=== PATIENT | female | born 1990 | race Caucasian/White ===

== ENCOUNTER 2019-02-07 21:23 | Inpatient (IN) | payer OTHER ==
[~2019-02-07] VITALS: Ht 167.6 cm; Wt 54.5 kg
[2019-02-07 23:15] VITALS: BP 99/48
[2019-02-08] VITALS (17 sets, daily range): BP systolic 82–151; BP diastolic 37–82
[2019-02-08] MEDS ORDERED: INFLUENZA VAX SCREEN BY RX. MC PRN (02:00)
[2019-02-08] MEDS ORDERED: ONDANSETRON PF 4 MG/2 ML VIAL. IVP PRN (02:00)
[2019-02-08] MEDS: IV NORMAL SALINE 1000ML BAG 1,000 ML IV SCH ×2 (03:15→13:08)
[2019-02-08] MEDS: ACETAMINOPHEN 325 MG TABLET. PO PRN ×2 (03:42→13:07)
[2019-02-08 04:28] LABS: BASO % 0 % (0-3); EOS % 0 % (0-3); HEMATOCRIT 33.7 % (36.0-47.0); HEMOGLOBIN 11.6 g/dL (12.0-15.5); LYMPH % 6 % (24-48); MEAN CORPUSCULAR HEMOGLOBIN 30 pg (25-35); MEAN CORPUSCULAR HGB CONC 34 g/dL (31-37); MEAN CORPUSCULAR VOLUME 87 fL (79-100); MONO # 1.1 x10^3/uL (0.0-1.1); MONO % 8 % (0-9); NEUT # 13.1 x10^3/uL (1.8-7.7); NEUT % 86 % (31-73); PLATELET COUNT 228 x10^3/uL (140-400); RED BLOOD COUNT 3.89 x10^6/uL (3.50-5.40); RED CELL DISTRIBUTION WIDTH 13.7 % (11.5-14.5); WHITE BLOOD COUNT 15.3 x10^3/uL (4.0-11.0)
[2019-02-08 04:56] LABS: ALBUMIN 3.2 g/dL (3.4-5.0); ALBUMIN/GLOBULIN RATIO 1.1 (1.0-1.7); CALCIUM 8.1 mg/dL (8.5-10.1); CREATININE 0.9 mg/dL (0.6-1.0); GFR 75.7; MAGNESIUM 1.5 mg/dL (1.8-2.4); POTASSIUM 3.2 mmol/L (3.5-5.1); TOTAL PROTEIN 6.1 g/dL (6.4-8.2)
[2019-02-08 07:48] LABS: % BANDS 11 % (0-9); % LYMPHS 2 % (24-48); % MONOS 2 % (0-10); % SEGS 85 % (35-66); PLT ESTIMATE ADEQUATE (ADEQUATE)
--- NOTE | 2019-02-08 08:00 | NUR ---
PT TRIGGERED POSITIVE SEPSIS- HR 101, TEMP 99.0, WBC 15.3, BP 85/46. PAGED ICU CHARGE NURSE. ORDERED BLOOD CULTURES, CBC, LACTIC ACID, AND 500 ML NS BOLUS. NOTIFIED DR. MCGREGOR, ORDERS RECEIVED FOR ZOSYN 3.75 Q6HR, AND AN ID CONSULT. WILL CONTINUE TO MONITOR. Addendum: 02/08/19 at 0953 by FROY EVANS RN PT BP 90/51, HR 100'S. PT RESTING IN BED WITH EYES CLOSED. FAMILY AT THE BEDSIDE. WILL CONTINUE TO MONITOR.
[2019-02-08] MEDS: oxyCODONE/APAP 5/325 1 TAB TABLET PO PRN (08:30)
[2019-02-08] MEDS ORDERED: FLU VAX QS 2019-20 (36MOS+)/PF 0.5 ML SYRINGE. VAX IM ONE (09:00)
[2019-02-08] MEDS ORDERED: IV NORMAL SALINE 500ML BAG 500 ML IV ONE (09:00)
[2019-02-08 09:40] LABS: BASO % 0 % (0-3); EOS % 0 % (0-3); HEMATOCRIT 32.9 % (36.0-47.0); LYMPH # 1.1 x10^3/uL (1.0-4.8); LYMPH % 8 % (24-48); MEAN CORPUSCULAR HEMOGLOBIN 29 pg (25-35); MEAN CORPUSCULAR HGB CONC 33 g/dL (31-37); MEAN CORPUSCULAR VOLUME 88 fL (79-100); MONO # 0.8 x10^3/uL (0.0-1.1); MONO % 6 % (0-9); NEUT # 11.5 x10^3/uL (1.8-7.7); NEUT % 86 % (31-73); PLATELET COUNT 198 x10^3/uL (140-400); RED BLOOD COUNT 3.76 x10^6/uL (3.50-5.40); RED CELL DISTRIBUTION WIDTH 13.5 % (11.5-14.5); WHITE BLOOD COUNT 13.4 x10^3/uL (4.0-11.0)
--- NOTE | 2019-02-08 10:03 | NUR ---
PT CONFIRMED ALLERGY TO CEFPROZIL. PT STATED SHE HAD A "RASH" WHEN SHE WAS A "KID" AFTER RECEIVING THE ANTIBIOTIC. ZOSYN ORDERED PER SEPSIS PROTOCOL, WILL CONTINUE TO MONITOR FOR AN ALLERGIC REACTION.
[2019-02-08] MEDS: PIPERACILLIN/TAZOBACTAM 3.375 GM in IV NORMAL SALINE 50ML 50 ML IV SCH ×2 (10:44→17:46)
--- NOTE | 2019-02-08 10:55 | PDOC1 ---
History and Physical Date of Admission Date of Admission DATE: 02/08/19 TIME: 10:55 Identification/Chief Complaint Chief Complaint transfer from [facility] er with sepsis, now hypotensive, temp 102.9 last PM CXR [place] AND CT ABD NOT REVEALING, WILL GO TO ICU NOW FOR HYPOTENSION, NOT RESPONSIVE TO IV FLUID SUPPORT Past Medical History GI: No pertinent hx Heme/Onc: No pertinent hx Hepatobiliary: No pertinent hx Psych: No pertinent hx Renal/: No pertinent hx Endocrine: No pertinent hx Past Surgical History Past Surgical History: Appendectomy Family History Family History: High Cholestrol Social History Smoke: No ALCOHOL: none Drugs: None Current Medications Current Medications Current Medications Influenza Virus Vaccine Quadrival (Afluria Quad 2019-20 (3yr Up) Syringe) 0.5 ml ONCE ONCE VAX IM ; Start 02/08/19 at 09:00; Stop 02/08/19 at 09:01; Status DC Info (FLU VACCINE SCREEN per RX) 1 each PRN 1X PRN MC SEE COMMENTS; Start 02/08/19 at 02:00; Status Cancel Sodium Chloride 1,000 ml @ 75 mls/hr [id number] IV Last administered on 02/08/19at 03:15; Start 02/08/19 at 02:00 Ondansetron HCl (Zofran) 4 mg PRN Q6HRS PRN IVP NAUSEA/VOMITING; Start 02/08/19 at 02:00 Oxycodone/ Acetaminophen (Percocet 5/325) 1 tab PRN Q4HRS PRN PO PAIN Last administered on 02/08/19at 08:30; Start 02/08/19 at 02:00 Acetaminophen (Tylenol) 650 mg PRN Q6HRS PRN PO MILD PAIN / TEMP Last administered on 02/08/19at 03:42; Start 02/08/19 at 02:00 Levofloxacin (Levaquin) 500 mg DAILY06 PO Last administered on 02/08/19at 05:33; Start 02/08/19 at 06:00 Sodium Chloride 500 ml @ 500 mls/hr 1X ONCE IV Last administered on 02/08/19at 09:00; Start 02/08/19 at 09:00; Stop 02/08/19 at 09:59; Status DC Piperacillin Sod/ Tazobactam Sod 3.375 gm/Sodium Chloride 50 ml @ 100 mls/hr Q6HRS IV Last administered on 02/08/19at 10:44; Start 02/08/19 at 10:00 Allergies Allergies: Coded Allergies: cefprozil (Verified Allergy, Intermediate, Rash, 02/08/19) ROS General: YES: Chills, Fatigue PSYCHOLOGICAL ROS: No: Anxiety, Behavioral Disorder, Concentration difficultie, Decreased libido, Depression, Disorientation, Hallucinations, Hostility, Irritablity, Memory difficulties, Mood Swings, Obsessive thoughts, Physical abuse, Sexual abuse, Sleep disturbances, Suicidal ideation, Other Eyes: No Blurry vision, No Decreased vision, No Double vision, No Dry eyes, No Excessive tearing, No Eye Pain, No Itchy Eyes, No Loss of vision, No Photophobia, No Scotomata, No Uses contacts, No Uses glasses, No Other Hematological and Lymphatic: No: Bleeding Problems, Blood Clots, Blood Transfusions, Brusing, Night Sweats, Pallor, Swollen Lymph Nodes, Other ENDOCRINE: YES: Breast Changes Breast: Nipple changes Respiratory: No: Cough, Hemoptysis, Orthopnea, Pleuritic Pain, Shortness of breath, SOB with excertion, Sputum Changes, Stridor, Tachypnea, Wheezing, Other Cardiovascular: No Chest Pain, No Palpitations, No Orthopnea, No Paroxysmal Noc. Dyspnea, No Edema, No Lt Headedness, No Other Gastrointestinal: Yes Nausea Genitourinary: No Dysuria, No Frequency, No Incontinence, No Hematuria, No Retention, No Discharge, No Urgency, No Pain, No Flank Pain, No Other, No , No , No , No , No , No , No Musculoskeletal: No Gait Disturbance, No Joint Pain, No Joint Stiffness, No Angélica int Swelling, No Muscle Pain, No Muscular Weakness, No Pain In:, No Swelling In:, No Other Neurological: No Behavorial Changes, No Bowel/Bladder ControlChng, No Confusion, No Dizziness, No Gait Disturbance, No Headaches, No Impaired C oord/balance, No Memory Loss, No Numbness/Tingling, No Seizures, No Speech Problems, No Tremors, No Visual Changes, No Weakness, No Other Skin: No Dry Skin, No Eczema, No Hair Changes, No Lumps, No Mole Changes, No Mottling, No Nail Changes, No Pruritus, No Rash, No Skin Lesion Changes, No Other, No Acne Physical Exam General: Alert, Oriented X3, Cooperative, No acute distress HEENT: PERRLA Lungs: Clear to auscultation, Normal air movement Heart: RRR, no thrills, no rubs Breasts: Not examined Abdomen: Normal bowel sounds, Soft Rectal Exam: not examined PELVIC: Examination not indicated Extremities: No cyanosis Neuro: Normal speech, Cranial nerves 3-12 NL Psych/Mental Status: Mental status NL, Mood NL Vitals Vitals Vital Signs Date Time Temp Pulse Resp B/P (MAP) Pulse Ox O2 Delivery O2 Flow Rate FiO2 02/08/19 08:51 102 90/51 (64) 99 Room Air 02/08/19 07:00 99.0 18 99.0 Labs Labs Laboratory Tests Test 02/08/19 03:20 02/08/19 09:25 White Blood Count 15.3 x10^3/uL (4.0-11.0) 13.4 x10^3/uL (4.0-11.0) Red Blood Count 3.89 x10^6/uL (3.50-5.40) 3.76 x10^6/uL (3.50-5.40) Hemoglobin 11.6 g/dL (12.0-15.5) 11.0 g/dL (12.0-15.5) Hematocrit 33.7 % (36.0-47.0) 32.9 % (36.0-47.0) Mean Corpuscular Volume 87 fL (79-100) 88 fL (79-100) Mean Corpuscular Hemoglobin 30 pg (25-35) 29 pg (25-35) Mean Corpuscular Hemoglobin Concent 34 g/dL (31-37) 33 g/dL (31-37) Red Cell Distribution Width 13.7 % (11.5-14.5) 13.5 % (11.5-14.5) Platelet Count 228 x10^3/uL (140-400) 198 x10^3/uL (140-400) Neutrophils (%) (Auto) 86 % (31-73) 86 % (31-73) Lymphocytes (%) (Auto) 6 % (24-48) 8 % (24-48) Monocytes (%) (Auto) 8 % (0-9) 6 % (0-9) Eosinophils (%) (Auto) 0 % (0-3) 0 % (0-3) Basophils (%) (Auto) 0 % (0-3) 0 % (0-3) Neutrophils # (Auto) 13.1 x10^3/uL (1.8-7.7) 11.5 x10^3/uL (1.8-7.7) Lymphocytes # (Auto) 1.0 x10^3/uL (1.0-4.8) 1.1 x10^3/uL (1.0-4.8) Monocytes # (Auto) 1.1 x10^3/uL (0.0-1.1) 0.8 x10^3/uL (0.0-1.1) Eosinophils # (Auto) 0.0 x10^3/uL (0.0-0.7) 0.0 x10^3/uL (0.0-0.7) Basophils # (Auto) 0.0 x10^3/uL (0.0-0.2) 0.0 x10^3/uL (0.0-0.2) Segmented Neutrophils % 85 % (35-66) Band Neutrophils % 11 % (0-9) Lymphocytes % 2 % (24-48) Monocytes % 2 % (0-10) Platelet Estimate Adequate (ADEQUATE) Sodium Level 139 mmol/L (136-145) Potassium Level 3.2 mmol/L (3.5-5.1) Chloride Level 104 mmol/L (98-107) Carbon Dioxide Level 22 mmol/L (21-32) Anion Gap 13 (6-14) Blood Urea Nitrogen 10 mg/dL (7-20) Creatinine 0.9 mg/dL (0.6-1.0) Estimated GFR (Cockcroft-Gault) 75.7 BUN/Creatinine Ratio 11 (6-20) Glucose Level 114 mg/dL (70-99) Calcium Level 8.1 mg/dL (8.5-10.1) Magnesium Level 1.5 mg/dL (1.8-2.4) Total Bilirubin 1.0 mg/dL (0.2-1.0) Aspartate Amino Transf (AST/SGOT) 17 U/L (15-37) Alanine Aminotransferase (ALT/SGPT) 19 U/L (14-59) Alkaline Phosphatase 47 U/L (46-116) Total Protein 6.1 g/dL (6.4-8.2) Albumin 3.2 g/dL (3.4-5.0) Albumin/Globulin Ratio 1.1 (1.0-1.7) Lactic Acid Level 0.7 mmol/L (0.4-2.0) Laboratory Tests Test 02/08/19 03:20 02/08/19 09:25 White Blood Count 15.3 x10^3/uL (4.0-11.0) 13.4 x10^3/uL (4.0-11.0) Red Blood Count 3.89 x10^6/uL (3.50-5.40) 3.76 x10^6/uL (3.50-5.40) Hemoglobin 11.6 g/dL (12.0-15.5) 11.0 g/dL (12.0-15.5) Hematocrit 33.7 % (36.0-47.0) 32.9 % (36.0-47.0) Mean Corpuscular Volume 87 fL (79-100) 88 fL (79-100) Mean Corpuscular Hemoglobin 30 pg (25-35) 29 pg (25-35) Mean Corpuscular Hemoglobin Concent 34 g/dL (31-37) 33 g/dL (31-37) Red Cell Distribution Width 13.7 % (11.5-14.5) 13.5 % (11.5-14.5) Platelet Count 228 x10^3/uL (140-400) 198 x10^3/uL (140-400) Neutrophils (%) (Auto) 86 % (31-73) 86 % (31-73) Lymphocytes (%) (Auto) 6 % (24-48) 8 % (24-48) Monocytes (%) (Auto) 8 % (0-9) 6 % (0-9) Eosinophils (%) (Auto) 0 % (0-3) 0 % (0-3) Basophils (%) (Auto) 0 % (0-3) 0 % (0-3) Neutrophils # (Auto) 13.1 x10^3/uL (1.8-7.7) 11.5 x10^3/uL (1.8-7.7) Lymphocytes # (Auto) 1.0 x10^3/uL (1.0-4.8) 1.1 x10^3/uL (1.0-4.8) Monocytes # (Auto) 1.1 x10^3/uL (0.0-1.1) 0.8 x10^3/uL (0.0-1.1) Eosinophils # (Auto) 0.0 x10^3/uL (0.0-0.7) 0.0 x10^3/uL (0.0-0.7) Basophils # (Auto) 0.0 x10^3/uL (0.0-0.2) 0.0 x10^3/uL (0.0-0.2) Segmented Neutrophils % 85 % (35-66) Band Neutrophils % 11 % (0-9) Lymphocytes % 2 % (24-48) Monocytes % 2 % (0-10) Platelet Estimate Adequate (ADEQUATE) Sodium Level 139 mmol/L (136-145) Potassium Level 3.2 mmol/L (3.5-5.1) Chloride Level 104 mmol/L (98-107) Carbon Dioxide Level 22 mmol/L (21-32) Anion Gap 13 (6-14) Blood Urea Nitrogen 10 mg/dL (7-20) Creatinine 0.9 mg/dL (0.6-1.0) Estimated GFR (Cockcroft-Gault) 75.7 BUN/Creatinine Ratio 11 (6-20) Glucose Level 114 mg/dL (70-99) Calcium Level 8.1 mg/dL (8.5-10.1) Magnesium Level 1.5 mg/dL (1.8-2.4) Total Bilirubin 1.0 mg/dL (0.2-1.0) Aspartate Amino Transf (AST/SGOT) 17 U/L (15-37) Alanine Aminotransferase (ALT/SGPT) 19 U/L (14-59) Alkaline Phosphatase 47 U/L (46-116) Total Protein 6.1 g/dL (6.4-8.2) Albumin 3.2 g/dL (3.4-5.0) Albumin/Globulin Ratio 1.1 (1.0-1.7) Lactic Acid Level 0.7 mmol/L (0.4-2.0) VTE Prophylaxis Ordered VTE Prophylaxis Devices: Yes VTE Pharmacological Prophylaxi: Yes Assessment/Plan Assessment/Plan IMPRESSION 1. FEVER UNCLEAR ORIGIN 2. SEPSIS 3. BITE TO LEFT BREAST by , POA 4. LEUKOCYTOSIS PLAN ADMIT TO ICU SEPSIS PROTOCOL BLOOD CULT IV ZOSYN 3.75GM Q 6 HRS ID CONSULT DVT PROPHYLAXIS IV FLUID BOLUS 2 LITERS NOW LEVAQUIN 500MG IV Q 24 HRS PROCALCITONIN 33 MIN CC TIME REBECCA MCGREGOR MD Feb 08, 2019 10:55
--- NOTE | 2019-02-08 11:12 | NUR ---
PT BP 82/46, HR 80'S, TEMP 98.1 ORAL. PT C/O FEELING "LIGHTHEADED." DR. MCGREGOR NOTIFIED. ORDERS RECEIVED FOR A 1L NS BOLUS TO RUN OVER 1 HR AND TO RECHECK BP. WILL CONTINUE TO MONITOR. Addendum: 02/08/19 at 1414 by FROY EVANS RN Pt BP 86/48, HR IN THE 80'S AFTER 1L NS BOLUS. NOTIFIED DR. MCGREGOR. ORDERS RECEIVED TO TRANSFER PATIENT TO ICU AND GIVE ANOTHER 1L NS BOLUS. WILL CONTINUE TO MONITOR.
[2019-02-08] MEDS ORDERED: IV NORMAL SALINE 1000ML BAG 1,000 ML IV ONE ×2 (11:45→14:15)
[2019-02-08] MEDS ORDERED: IV NORMAL SALINE 1000ML BAG 1,000 ML IV SCH (14:12)
[2019-02-08] MEDS ORDERED: NOREPINEPHRIN 8MG/250ML PREMIX 250 ML IV PRN (14:15)
[2019-02-08] MEDS ORDERED: IV NORMAL SALINE 500ML BAG 500 ML IV PRN (14:15)
[2019-02-08] MEDS ORDERED: MAGNESIUM SULFATE 2GM 50 ML IV PRN (14:30)
[2019-02-08] MEDS ORDERED: POTASSIUM CHLORIDE 20 MEQ TABLET.ER. PO ONE (14:30)
[2019-02-08 14:46] LABS: D-DIMER 0.31 ug/mlFEU (0.00-0.50)
--- NOTE | 2019-02-08 14:48 | NUR ---
PT TRANSFERRED TO ICU, ROOM 114. REPORT CALLED TO JORDIN WYLIE. PT TRANSPORTED VIA WHEELCHAIR WITH FAMILY AT THE BEDSIDE DURING TRANSFER.
--- NOTE | 2019-02-08 14:56 | NUR ---
Patient to room 114 via wheelchair accompanied by 6th floor staff. Informed patient of ICU room that she is in, visitor policy and plan of care. CHG bath explained to patient and given. CHG nasal swab explained and given to patient. Privacy code given to patient's mother and instructed on use of code to check on patient. Denies any questions or concerns at this time.
--- NOTE | 2019-02-08 15:00 | NUR ---
Patient c/o continued pain rated 6 to left breast. Breast above nipple reddened and tender to touch. Ice pack applied to breast.
[2019-02-08] MEDS: LACTOBACILLUS RHAMNOSUS GG 1 CAPSULE. PO SCH (21:09)
[2019-02-09] VITALS (15 sets, daily range): BP systolic 87–108; BP diastolic 45–67
[2019-02-09] MEDS: PIPERACILLIN/TAZOBACTAM 3.375 GM in IV NORMAL SALINE 50ML 50 ML IV SCH ×5 (00:02→23:58)
[2019-02-09] MEDS: oxyCODONE/APAP 5/325 1 TAB TABLET PO PRN ×2 (00:02→14:17)
[2019-02-09 05:45] LABS: BASO % 0 % (0-3); EOS # 0.3 x10^3/uL (0.0-0.7); EOS % 3 % (0-3); HEMATOCRIT 31.4 % (36.0-47.0); HEMOGLOBIN 10.7 g/dL (12.0-15.5); LYMPH # 1.6 x10^3/uL (1.0-4.8); LYMPH % 16 % (24-48); MEAN CORPUSCULAR HEMOGLOBIN 30 pg (25-35); MEAN CORPUSCULAR HGB CONC 34 g/dL (31-37); MEAN CORPUSCULAR VOLUME 87 fL (79-100); MONO # 0.6 x10^3/uL (0.0-1.1); MONO % 6 % (0-9); NEUT % 76 % (31-73); PLATELET COUNT 192 x10^3/uL (140-400); RED BLOOD COUNT 3.59 x10^6/uL (3.50-5.40); WHITE BLOOD COUNT 10.6 x10^3/uL (4.0-11.0)
[2019-02-09] MEDS: IV NORMAL SALINE 1000ML BAG 1,000 ML IV SCH ×3 (05:55→21:42)
[2019-02-09 06:05] LABS: CALCIUM 8.2 mg/dL (8.5-10.1); CREATININE 0.8 mg/dL (0.6-1.0); GFR 86.7; POTASSIUM 3.8 mmol/L (3.5-5.1); TOTAL BILIRUBIN 0.4 mg/dL (0.2-1.0); TOTAL PROTEIN 6.1 g/dL (6.4-8.2)
--- NOTE | 2019-02-09 07:23 | NUR ---
IV fluids NS ordered for 1412 on 02/08/19 documented as not given in ICU; IV bolus given on nursing unit before transfer
--- NOTE | 2019-02-09 08:55 | PDOC ---
Infectious Disease Note Vital Sign Vital Signs Vital Signs Date Time Temp Pulse Resp B/P (MAP) Pulse Ox O2 Delivery O2 Flow Rate FiO2 02/09/19 08:00 Room Air 02/09/19 07:00 98.1 93 18 95/53 (67) 97 98.1 Labs Lab Laboratory Tests Test 02/08/19 09:25 02/09/19 05:00 White Blood Count 13.4 x10^3/uL (4.0-11.0) 10.6 x10^3/uL (4.0-11.0) Red Blood Count 3.76 x10^6/uL (3.50-5.40) 3.59 x10^6/uL (3.50-5.40) Hemoglobin 11.0 g/dL (12.0-15.5) 10.7 g/dL (12.0-15.5) Hematocrit 32.9 % (36.0-47.0) 31.4 % (36.0-47.0) Mean Corpuscular Volume 88 fL (79-100) 87 fL (79-100) Mean Corpuscular Hemoglobin 29 pg (25-35) 30 pg (25-35) Mean Corpuscular Hemoglobin Concent 33 g/dL (31-37) 34 g/dL (31-37) Red Cell Distribution Width 13.5 % (11.5-14.5) 14.0 % (11.5-14.5) Platelet Count 198 x10^3/uL (140-400) 192 x10^3/uL (140-400) Neutrophils (%) (Auto) 86 % (31-73) 76 % (31-73) Lymphocytes (%) (Auto) 8 % (24-48) 16 % (24-48) Monocytes (%) (Auto) 6 % (0-9) 6 % (0-9) Eosinophils (%) (Auto) 0 % (0-3) 3 % (0-3) Basophils (%) (Auto) 0 % (0-3) 0 % (0-3) Neutrophils # (Auto) 11.5 x10^3/uL (1.8-7.7) 8.0 x10^3/uL (1.8-7.7) Lymphocytes # (Auto) 1.1 x10^3/uL (1.0-4.8) 1.6 x10^3/uL (1.0-4.8) Monocytes # (Auto) 0.8 x10^3/uL (0.0-1.1) 0.6 x10^3/uL (0.0-1.1) Eosinophils # (Auto) 0.0 x10^3/uL (0.0-0.7) 0.3 x10^3/uL (0.0-0.7) Basophils # (Auto) 0.0 x10^3/uL (0.0-0.2) 0.0 x10^3/uL (0.0-0.2) Fibrinogen 425 mg/dL (200-440) D-Dimer (Kassie) 0.31 ug/mlFEU (0.00-0.50) Lactic Acid Level 0.7 mmol/L (0.4-2.0) Procalcitonin 5.75 ng/mL (0.00-0.10) Sodium Level 144 mmol/L (136-145) Potassium Level 3.8 mmol/L (3.5-5.1) Chloride Level 110 mmol/L (98-107) Carbon Dioxide Level 25 mmol/L (21-32) Anion Gap 9 (6-14) Blood Urea Nitrogen 7 mg/dL (7-20) Creatinine 0.8 mg/dL (0.6-1.0) Estimated GFR (Cockcroft-Gault) 86.7 BUN/Creatinine Ratio 9 (6-20) Glucose Level 96 mg/dL (70-99) Calcium Level 8.2 mg/dL (8.5-10.1) Total Bilirubin 0.4 mg/dL (0.2-1.0) Aspartate Amino Transf (AST/SGOT) 26 U/L (15-37) Alanine Aminotransferase (ALT/SGPT) 35 U/L (14-59) Alkaline Phosphatase 46 U/L (46-116) Total Protein 6.1 g/dL (6.4-8.2) Albumin 3.0 g/dL (3.4-5.0) Albumin/Globulin Ratio 1.0 (1.0-1.7) Objective Assessment Sepsis with hypotension responsive to fluid resuscitation Mastitis left breast. (bitten by 1 yr) Leukocytosis - improved Atypical chest pain - LUNGs CTA h/o herpangina 2 months ago; recent travel to [place]. Plan Plan of Care Clinically improving Zosyn and levaquin May continue to pump Consider nurse f/u cultures D/w mother at bedside D/w nursing Thank you [place] ill with URI symptoms prior to bite. Rapid acceleration in pain and inflammation 02/07. Now responding to treatment. Possible strep with rapid onset but given bite could be polymicrobial Will d/c Levofloxacin and cont Zosyn and if cont to improve with de-escalate to Augmentin D/w parents and nursing Attending Co-Sign Attending Co-Sign The patient was seen and interviewed as well as examined at the bedside. The chart was reviewed. The case was discussed. Agree with the plan of care. ZANE VALENTIN APRN Feb 09, 2019 08:55 NICHOLAS ELLIS MD Feb 09, 2019 13:32
[2019-02-09] MEDS: LACTOBACILLUS RHAMNOSUS GG 1 CAPSULE. PO SCH ×2 (08:57→21:05)
--- NOTE | 2019-02-09 09:25 | PDOC ---
PROGRESS NOTES Chief Complaint Chief Complaint sepsis acute mastitis w/ cellulitis, bite to left breast still History of Present Illness History of Present Illness cough, some some with deep breaths, left breast redness is much improved cont current ID following Vitals Vitals Vital Signs Date Time Temp Pulse Resp B/P (MAP) Pulse Ox O2 Delivery O2 Flow Rate FiO2 02/09/19 09:05 77 18 100/58 (72) 98 Room Air 02/09/19 07:00 98.1 98.1 Physical Exam General: Alert, Oriented X3, Cooperative, No acute distress Heart: Regular rate, No murmurs Lungs: Clear Abdomen: Normal bowel sounds, Soft Extremities: No cyanosis Labs LABS Laboratory Tests Test 02/08/19 09:25 02/09/19 05:00 02/09/19 05:05 White Blood Count 13.4 x10^3/uL (4.0-11.0) 10.6 x10^3/uL (4.0-11.0) Red Blood Count 3.76 x10^6/uL (3.50-5.40) 3.59 x10^6/uL (3.50-5.40) Hemoglobin 11.0 g/dL (12.0-15.5) 10.7 g/dL (12.0-15.5) Hematocrit 32.9 % (36.0-47.0) 31.4 % (36.0-47.0) Mean Corpuscular Volume 88 fL (79-100) 87 fL (79-100) Mean Corpuscular Hemoglobin 29 pg (25-35) 30 pg (25-35) Mean Corpuscular Hemoglobin Concent 33 g/dL (31-37) 34 g/dL (31-37) Red Cell Distribution Width 13.5 % (11.5-14.5) 14.0 % (11.5-14.5) Platelet Count 198 x10^3/uL (140-400) 192 x10^3/uL (140-400) Neutrophils (%) (Auto) 86 % (31-73) 76 % (31-73) Lymphocytes (%) (Auto) 8 % (24-48) 16 % (24-48) Monocytes (%) (Auto) 6 % (0-9) 6 % (0-9) Eosinophils (%) (Auto) 0 % (0-3) 3 % (0-3) Basophils (%) (Auto) 0 % (0-3) 0 % (0-3) Neutrophils # (Auto) 11.5 x10^3/uL (1.8-7.7) 8.0 x10^3/uL (1.8-7.7) Lymphocytes # (Auto) 1.1 x10^3/uL (1.0-4.8) 1.6 x10^3/uL (1.0-4.8) Monocytes # (Auto) 0.8 x10^3/uL (0.0-1.1) 0.6 x10^3/uL (0.0-1.1) Eosinophils # (Auto) 0.0 x10^3/uL (0.0-0.7) 0.3 x10^3/uL (0.0-0.7) Basophils # (Auto) 0.0 x10^3/uL (0.0-0.2) 0.0 x10^3/uL (0.0-0.2) Fibrinogen 425 mg/dL (200-440) D-Dimer (Kassie) 0.31 ug/mlFEU (0.00-0.50) Lactic Acid Level 0.7 mmol/L (0.4-2.0) Procalcitonin 5.75 ng/mL (0.00-0.10) Sodium Level 144 mmol/L (136-145) Potassium Level 3.8 mmol/L (3.5-5.1) Chloride Level 110 mmol/L (98-107) Carbon Dioxide Level 25 mmol/L (21-32) Anion Gap 9 (6-14) Blood Urea Nitrogen 7 mg/dL (7-20) Creatinine 0.8 mg/dL (0.6-1.0) Estimated GFR (Cockcroft-Gault) 86.7 BUN/Creatinine Ratio 9 (6-20) Glucose Level 96 mg/dL (70-99) Calcium Level 8.2 mg/dL (8.5-10.1) Total Bilirubin 0.4 mg/dL (0.2-1.0) Aspartate Amino Transf (AST/SGOT) 26 U/L (15-37) Alanine Aminotransferase (ALT/SGPT) 35 U/L (14-59) Alkaline Phosphatase 46 U/L (46-116) Total Protein 6.1 g/dL (6.4-8.2) Albumin 3.0 g/dL (3.4-5.0) Albumin/Globulin Ratio 1.0 (1.0-1.7) Magnesium Level 2.3 mg/dL (1.8-2.4) Comment Review of Relevant I have reviewed the following items alice (where applicable) has been applied. Labs Laboratory Tests Test 02/08/19 03:20 02/08/19 09:25 02/09/19 05:00 02/09/19 05:05 White Blood Count 15.3 x10^3/uL (4.0-11.0) 13.4 x10^3/uL (4.0-11.0) 10.6 x10^3/uL (4.0-11.0) Red Blood Count 3.89 x10^6/uL (3.50-5.40) 3.76 x10^6/uL (3.50-5.40) 3.59 x10^6/uL (3.50-5.40) Hemoglobin 11.6 g/dL (12.0-15.5) 11.0 g/dL (12.0-15.5) 10.7 g/dL (12.0-15.5) Hematocrit 33.7 % (36.0-47.0) 32.9 % (36.0-47.0) 31.4 % (36.0-47.0) Mean Corpuscular Volume 87 fL (79-100) 88 fL (79-100) 87 fL (79-100) Mean Corpuscular Hemoglobin 30 pg (25-35) 29 pg (25-35) 30 pg (25-35) Mean Corpuscular Hemoglobin Concent 34 g/dL (31-37) 33 g/dL (31-37) 34 g/dL (31-37) Red Cell Distribution Width 13.7 % (11.5-14.5) 13.5 % (11.5-14.5) 14.0 % (11.5-14.5) Platelet Count 228 x10^3/uL (140-400) 198 x10^3/uL (140-400) 192 x10^3/uL (140-400) Neutrophils (%) (Auto) 86 % (31-73) 86 % (31-73) 76 % (31-73) Lymphocytes (%) (Auto) 6 % (24-48) 8 % (24-48) 16 % (24-48) Monocytes (%) (Auto) 8 % (0-9) 6 % (0-9) 6 % (0-9) Eosinophils (%) (Auto) 0 % (0-3) 0 % (0-3) 3 % (0-3) Basophils (%) (Auto) 0 % (0-3) 0 % (0-3) 0 % (0-3) Neutrophils # (Auto) 13.1 x10^3/uL (1.8-7.7) 11.5 x10^3/uL (1.8-7.7) 8.0 x10^3/uL (1.8-7.7) Lymphocytes # (Auto) 1.0 x10^3/uL (1.0-4.8) 1.1 x10^3/uL (1.0-4.8) 1.6 x10^3/uL (1.0-4.8) Monocytes # (Auto) 1.1 x10^3/uL (0.0-1.1) 0.8 x10^3/uL (0.0-1.1) 0.6 x10^3/uL (0.0-1.1) Eosinophils # (Auto) 0.0 x10^3/uL (0.0-0.7) 0.0 x10^3/uL (0.0-0.7) 0.3 x10^3/uL (0.0-0.7) Basophils # (Auto) 0.0 x10^3/uL (0.0-0.2) 0.0 x10^3/uL (0.0-0.2) 0.0 x10^3/uL (0.0-0.2) Segmented Neutrophils % 85 % (35-66) Band Neutrophils % 11 % (0-9) Lymphocytes % 2 % (24-48) Monocytes % 2 % (0-10) Platelet Estimate Adequate (ADEQUATE) Sodium Level 139 mmol/L (136-145) 144 mmol/L (136-145) Potassium Level 3.2 mmol/L (3.5-5.1) 3.8 mmol/L (3.5-5.1) Chloride Level 104 mmol/L (98-107) 110 mmol/L (98-107) Carbon Dioxide Level 22 mmol/L (21-32) 25 mmol/L (21-32) Anion Gap 13 (6-14) 9 (6-14) Blood Urea Nitrogen 10 mg/dL (7-20) 7 mg/dL (7-20) Creatinine 0.9 mg/dL (0.6-1.0) 0.8 mg/dL (0.6-1.0) Estimated GFR (Cockcroft-Gault) 75.7 86.7 BUN/Creatinine Ratio 11 (6-20) 9 (6-20) Glucose Level 114 mg/dL (70-99) 96 mg/dL (70-99) Calcium Level 8.1 mg/dL (8.5-10.1) 8.2 mg/dL (8.5-10.1) Magnesium Level 1.5 mg/dL (1.8-2.4) 2.3 mg/dL (1.8-2.4) Total Bilirubin 1.0 mg/dL (0.2-1.0) 0.4 mg/dL (0.2-1.0) Aspartate Amino Transf (AST/SGOT) 17 U/L (15-37) 26 U/L (15-37) Alanine Aminotransferase (ALT/SGPT) 19 U/L (14-59) 35 U/L (14-59) Alkaline Phosphatase 47 U/L (46-116) 46 U/L (46-116) Total Protein 6.1 g/dL (6.4-8.2) 6.1 g/dL (6.4-8.2) Albumin 3.2 g/dL (3.4-5.0) 3.0 g/dL (3.4-5.0) Albumin/Globulin Ratio 1.1 (1.0-1.7) 1.0 (1.0-1.7) Fibrinogen 425 mg/dL (200-440) D-Dimer (Kassie) 0.31 ug/mlFEU (0.00-0.50) Lactic Acid Level 0.7 mmol/L (0.4-2.0) Procalcitonin 5.75 ng/mL (0.00-0.10) Laboratory Tests Test 02/08/19 09:25 02/09/19 05:00 02/09/19 05:05 White Blood Count 13.4 x10^3/uL (4.0-11.0) 10.6 x10^3/uL (4.0-11.0) Red Blood Count 3.76 x10^6/uL (3.50-5.40) 3.59 x10^6/uL (3.50-5.40) Hemoglobin 11.0 g/dL (12.0-15.5) 10.7 g/dL (12.0-15.5) Hematocrit 32.9 % (36.0-47.0) 31.4 % (36.0-47.0) Mean Corpuscular Volume 88 fL (79-100) 87 fL (79-100) Mean Corpuscular Hemoglobin 29 pg (25-35) 30 pg (25-35) Mean Corpuscular Hemoglobin Concent 33 g/dL (31-37) 34 g/dL (31-37) Red Cell Distribution Width 13.5 % (11.5-14.5) 14.0 % (11.5-14.5) Platelet Count 198 x10^3/uL (140-400) 192 x10^3/uL (140-400) Neutrophils (%) (Auto) 86 % (31-73) 76 % (31-73) Lymphocytes (%) (Auto) 8 % (24-48) 16 % (24-48) Monocytes (%) (Auto) 6 % (0-9) 6 % (0-9) Eosinophils (%) (Auto) 0 % (0-3) 3 % (0-3) Basophils (%) (Auto) 0 % (0-3) 0 % (0-3) Neutrophils # (Auto) 11.5 x10^3/uL (1.8-7.7) 8.0 x10^3/uL (1.8-7.7) Lymphocytes # (Auto) 1.1 x10^3/uL (1.0-4.8) 1.6 x10^3/uL (1.0-4.8) Monocytes # (Auto) 0.8 x10^3/uL (0.0-1.1) 0.6 x10^3/uL (0.0-1.1) Eosinophils # (Auto) 0.0 x10^3/uL (0.0-0.7) 0.3 x10^3/uL (0.0-0.7) Basophils # (Auto) 0.0 x10^3/uL (0.0-0.2) 0.0 x10^3/uL (0.0-0.2) Fibrinogen 425 mg/dL (200-440) D-Dimer (Kassie) 0.31 ug/mlFEU (0.00-0.50) Lactic Acid Level 0.7 mmol/L (0.4-2.0) Procalcitonin 5.75 ng/mL (0.00-0.10) Sodium Level 144 mmol/L (136-145) Potassium Level 3.8 mmol/L (3.5-5.1) Chloride Level 110 mmol/L (98-107) Carbon Dioxide Level 25 mmol/L (21-32) Anion Gap 9 (6-14) Blood Urea Nitrogen 7 mg/dL (7-20) Creatinine 0.8 mg/dL (0.6-1.0) Estimated GFR (Cockcroft-Gault) 86.7 BUN/Creatinine Ratio 9 (6-20) Glucose Level 96 mg/dL (70-99) Calcium Level 8.2 mg/dL (8.5-10.1) Total Bilirubin 0.4 mg/dL (0.2-1.0) Aspartate Amino Transf (AST/SGOT) 26 U/L (15-37) Alanine Aminotransferase (ALT/SGPT) 35 U/L (14-59) Alkaline Phosphatase 46 U/L (46-116) Total Protein 6.1 g/dL (6.4-8.2) Albumin 3.0 g/dL (3.4-5.0) Albumin/Globulin Ratio 1.0 (1.0-1.7) Magnesium Level 2.3 mg/dL (1.8-2.4) Medications Current Medications Influenza Virus Vaccine Quadrival (Afluria Quad 2018- (3yr Up) Syringe) 0.5 ml ONCE ONCE VAX IM Last administered on 02/08/19at 17:49; Start 02/08/19 at 09:00; Stop 02/08/19 at 09:01; Status DC Info (FLU VACCINE SCREEN per RX) 1 each PRN 1X PRN MC SEE COMMENTS; Start 02/08/19 at 02:00; Status Cancel Sodium Chloride 1,000 ml @ 75 mls/hr [id number] IV Last administered on 02/09/19at 05:55; Start 02/08/19 at 02:00 Ondansetron HCl (Zofran) 4 mg PRN Q6HRS PRN IVP NAUSEA/VOMITING Last administered on 02/08/19at 14:38; Start 02/08/19 at 02:00 Oxycodone/ Acetaminophen (Percocet 5/325) 1 tab PRN Q4HRS PRN PO MODERATE TO SEVERE PAIN Last administered on 02/09/19at 00:02; Start 02/08/19 at 02:00 Acetaminophen (Tylenol) 650 mg PRN Q6HRS PRN PO MILD PAIN / TEMP Last administered on 02/08/19at 13:07; Start 02/08/19 at 02:00 Levofloxacin (Levaquin) 500 mg DAILY06 PO Last administered on 02/08/19at 05:33; Start 02/08/19 at 06:00; Stop 02/08/19 at 14:45; Status DC Sodium Chloride 500 ml @ 500 mls/hr 1X ONCE IV Last administered on 02/08/19at 09:00; Start 02/08/19 at 09:00; Stop 02/08/19 at 09:59; Status DC Piperacillin Sod/ Tazobactam Sod 3.375 gm/Sodium Chloride 50 ml @ 100 mls/hr Q6HRS IV Last administered on 02/09/19at 05:54; Start 02/08/19 at 10:00 Sodium Chloride 1,000 ml @ 1,000 mls/hr 1X ONCE IV Last administered on 02/08/19at 11:45; Start 02/08/19 at 11:45; Stop 02/08/19 at 12:44; Status DC Sodium Chloride 1,000 ml @ 1,000 mls/hr 1X ONCE IV Last administered on 02/08/19at 14:09; Start 02/08/19 at 14:15; Stop 02/08/19 at 15:14; Status DC Sodium Chloride 1,000 ml @ 1,770 mls/hr Q34M IV ; Start 02/08/19 at 14:12; Stop 02/08/19 at 15:12; Status DC Sodium Chloride 500 ml @ 1,000 mls/hr PRN Q30MIN PRN IV SEE COMMENTS; Start 02/08/19 at 14:15 Levofloxacin/ Dextrose 150 ml @ 100 mls/hr Q24H IV ; Start 02/08/19 at 15:00; Stop 02/13/19 at 14:59; Status Cancel Norepinephrine Bitartrate 250 ml @ 0 mls/hr CONT PRN IV SEE I/O RECORD; Start 02/08/19 at 14:15 Dobutamine HCl/ Dextrose 250 ml @ 0 mls/hr CONT PRN IV SEE I/O RECORD; Start 02/08/19 at 14:15 Potassium Chloride (Klor-Con) 40 meq 1X ONCE PO Last administered on 02/08/19at 14:38; Start 02/08/19 at 14:30; Stop 02/08/19 at 14:33; Status DC Magnesium Sulfate 50 ml @ 25 mls/hr PRN DAILY PRN IV MAGNESIUM LEVEL 1.7 MEQ/L OR < Last administered on 02/08/19at 15:26; Start 02/08/19 at 14:30 Levofloxacin/ Dextrose 150 ml @ 100 mls/hr Q24H IV Last administered on 02/09at 08:58; Start 02/09/19 at 09:00; Stop 02/13/19 at 10:29 Lactobacillus Rhamnosus (Culturelle) 1 cap BID PO Last administered on 02/09/19at 08:57; Start 02/08/19 at 21:00 Active Scripts Active Reported No Known Medications Prior To Admisstion (Info) Each 1 Each NONE Vitals/I & O Vital Sign - Last 24 Hours 02/08/19 02/08/19 02/08/19 02/08/19 11:00 15:00 15:00 15:13 Temp 98.1 98.6 97.8 98.1 98.6 97.8 Pulse 94 90 97 Resp 16 14 20 B/P (MAP) 82/46 (58) 99/74 (82) 106/63 (77) Pulse Ox 99 100 100 O2 Delivery Room Air Room Air Room Air Room Air 02/08/19 02/08/19 02/08/19 02/08/19 15:15 15:30 16:00 17:00 Pulse 90 92 101 74 Resp 14 14 14 14 B/P (MAP) 97/64 (75) 98/60 (73) 103/61 (75) 90/58 (69) Pulse Ox 100 100 100 100 O2 Delivery Room Air Room Air Room Air Room Air 02/08/19 02/08/19 02/08/19 02/08/19 18:00 19:00 20:00 21:00 Temp 98.2 98.2 Pulse 86 84 74 80 Resp 14 16 15 12 B/P (MAP) 94/58 (70) 94/61 (72) 107/67 (80) 96/67 (77) Pulse Ox 100 100 100 100 O2 Delivery Room Air Room Air Room Air Room Air 02/08/19 02/08/19 02/09/19 02/09/19 22:00 23:00 00:00 00:02 Temp 99.8 99.8 Pulse 106 100 94 Resp 15 14 16 14 B/P (MAP) 114/71 (85) 110/62 (78) 89/67 (74) Pulse Ox 100 100 100 100 O2 Delivery Room Air Room Air Room Air Room Air 02/09/19 02/09/19 02/09/19 02/09/19 01:00 01:13 02:00 03:00 Pulse 79 57 58 Resp 15 16 14 12 B/P (MAP) 98/52 (67) 94/54 (67) 87/52 (64) Pulse Ox 100 100 96 98 O2 Delivery Room Air Room Air Room Air Room Air 02/09/19 02/09/19 02/09/19 02/09/19 04:00 05:00 06:00 07:00 Temp 99.4 98.1 99.4 98.1 Pulse 54 63 77 93 Resp 16 16 20 18 B/P (MAP) 87/61 (70) 88/52 (64) 98/60 (73) 95/53 (67) Pulse Ox 97 98 97 97 O2 Delivery Room Air Room Air Room Air Room Air 02/09/19 02/09/19 02/09/19 08:00 08:00 09:05 Pulse 78 77 Resp 18 18 B/P (MAP) 101/57 (72) 100/58 (72) Pulse Ox 98 98 O2 Delivery Room Air Room Air Room Air Intake and Output 02/08/19 02/08/19 02/09/19 15:00 23:00 07:00 Intake Total 2320 ml 1100 ml 300 ml Output Total 0 ml 2600 ml 1100 ml Balance 2320 ml -1500 ml -800 ml ALEXEY WISE MD Feb 09, 2019 09:25
--- NOTE | 2019-02-09 10:50 | NUR ---
Patient transferred to [facility] with all personal belongings via wheelchair accompanied by family and ICU staff.
--- NOTE | 2019-02-09 11:00 | CONS ---
DATE OF CONSULTATION: 02/09/2019 Elmer Narayan, nurse practitioner, dictating for Jagjit Rudd MD, Infectious Disease. REQUESTING PHYSICIAN: Stan Kuhn MD REASON FOR CONSULT: Sepsis. HISTORY OF PRESENT ILLNESS: This patient is a pleasant 28-year-old female with no significant past medical history, who about 5 days ago developed mild flu-like symptoms. She felt rundown, had a headache, runny nose and sneezing. Later the same day, her 1-1/2-year-old daughter bit her left breast while breast feeding causing bleeding. She washed the area with water and continued to nurse, but only at night. Three days later, on Sunday she felt nauseous and more weak with fever and chills/shakes. She went to a [facility] for evaluation and was then referred to [facility] ER for a fever reportedly of 105.5 and tachycardia. An ultrasound of left breast showed no focal abnormality. Additional chest x-ray and CT imaging of head, abdomen and pelvis were unrevealing. Her WBC count and lactic acid were normal. Influenza screen was negative. Blood cultures from [facility] are showing no growth so far. She was dosed with levofloxacin prior to transferring to [place]. After arriving, she was sent to the Intensive Care Unit for hypotension, responsive to IV fluid resuscitation. Her WBC count nhung to 15,300, segs 85%, bands 11%. Her procalcitonin level was 5.75. Blood cultures were repeated. Zosyn was added. The patient says that she is feeling better, a little bit more energy. Her fever and chills have settled down. She has now noticed some redness develop over her left breast and is having some chest pain radiating to back area. She reports having been on antibiotics about 2 months ago for herpangina. She and her family travelled to [place] last week. They spent the time at [facility], where she developed altitude sickness with nausea, vomiting and headache. Symptoms resolved the next day with rest. Denies exposure to ill contacts. She dog sits for her brother. She finds the dog obnoxious as he jumps and nips at her. She has not noticed any break in skin. 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 Denies dysuria, frequency or urgency. Denies joint pains or rashes. She says she did have some numbness and tingling in her legs that since resolved. She is using the breast pump; however, has noticed a decreased supply of breast milk. She says her loose have been loose. Denies cramps. Denies cough or shortness or air. PAST MEDICAL HISTORY: Herpangina. PAST SURGICAL HISTORY: Appendectomy. FAMILY HISTORY: Diabetes. SOCIAL HISTORY: The patient is . Recent travel to [place] where she spent time at [employer]. Nonsmoker. ALLERGIES: SUPRAX CAUSING RASH. MEDICATIONS: Zosyn, levofloxacin, Tylenol; flu vaccine, 02/08; probiotics, ondansetron, Percocet, potassium. REVIEW OF SYSTEMS: Per HPI, otherwise all other review of systems are negative. PHYSICAL EXAMINATION: VITAL SIGNS: Temperature is 98.1, blood pressure 95/53, heart rate 93, respiratory rate 18, pulse oximetry is 97% on room air. GENERAL: The patient is propped up in bed, alert, appears comfortable. HEENT: Pupils equally round, reactive. Normal conjunctivae. Oropharynx pink and moist. No lesions. Nose piercing. NECK: Supple. No lymphadenopathy present. LUNGS: Clear to auscultation. BREASTS: Left breast mildly red, warm and tender. HEART: S1, S2. ABDOMEN: Nondistended, soft, nontender with bowel sounds present. EXTREMITIES: No gross edema or cyanosis. SKIN: Warm to touch. No signs of rash. Multiple tattoos. NEUROLOGIC: Alert and oriented x 3. Peripheral IV. LABORATORY DATA: Today's WBC 10.6 from 15.3, hemoglobin 10.7, platelets 192,000. Creatinine 0.8, BUN 7. Electrolytes unremarkable. Lactic acid 0.7. Total bilirubin 0.4, AST 26, ALT 35, albumin 3.0. Procalcitonin 5.75. test negative. Urine toxicology negative. IMAGING: Per HPI. Blood cultures from the 4th, negative to date. Blood cultures from the 5th, are pending. Urinalysis showed no wbc's or bacteria. IMPRESSION: 1. Sepsis with hypotension, responsive to fluid resuscitation. 2. Mastitis, left breast. 3. Leukocytosis, improved. 4. Atypical chest pain. PLAN: The patient is clinically improving. Continue with the Zosyn. She may continue to pump. Consider a nurse. We will follow up on cultures. Discussed with mother at bedside. Thank you, Dr. Kuhn, for asking us to participate in this patient's care. Should you have further questions or concerns, please call. NICHOLAS RUDD MD DR: SHAN/cecelia JOB#: [id number] / [id number] MARIBELL
[2019-02-09] MEDS: ACETAMINOPHEN 325 MG TABLET. PO PRN (11:07)
[2019-02-10] MEDS: ACETAMINOPHEN 325 MG TABLET. PO PRN (00:07)
[2019-02-10 02:30] VITALS: BP 97/60
[2019-02-10] MEDS: PIPERACILLIN/TAZOBACTAM 3.375 GM in IV NORMAL SALINE 50ML 50 ML IV SCH (06:06)
[2019-02-10 06:22] VITALS: BP 97/58
[2019-02-10] MEDS: LACTOBACILLUS RHAMNOSUS GG 1 CAPSULE. PO SCH (09:14)
--- NOTE | 2019-02-10 11:25 | PDOC ---
Infectious Disease Note Subjective Subjective Better. Was able to pump 1.5 onces and is ok No F?C/S/N/V/D/Rash ROS ROS o/w neg Vital Sign Vital Signs Vital Signs Date Time Temp Pulse Resp B/P (MAP) Pulse Ox O2 Delivery O2 Flow Rate FiO2 02/10/19 06:22 97.5 51 14 97/58 (71) 100 Room Air 97.5 Physical Exam PHYSICAL EXAM GENERAL: The patient is propped up in bed, alert, appears comfortable. HEENT: Pupils equally round, reactive. Normal conjunctivae. Oropharynx pink and moist. No lesions. Nose piercing. NECK: Supple. No lymphadenopathy present. LUNGS: Clear to auscultation. BREASTS: Left breast faint pink, Not warm and not grossly tender. HEART: S1, S2. ABDOMEN: Nondistended, soft, nontender with bowel sounds present. EXTREMITIES: No gross edema or cyanosis. SKIN: Warm to touch. No signs of rash. Multiple tattoos. NEUROLOGIC: Alert and oriented x 3. Peripheral IV. Labs Lab Laboratory Tests Test 02/10/19 08:55 Procalcitonin 2.40 ng/mL (0.00-0.10) Micro Microbiology 02/08/19 Blood Culture - Preliminary, Resulted NO GROWTH AFTER 2 DAYS Objective Assessment Sepsis with hypotension responsive to fluid resuscitation. Blood Cult neg. D/w [facility] as well this am Mastitis left breast. (bitten by 1 yr) - much better Leukocytosis - improved Atypical chest pain - LUNGs CTA h/o herpangina 2 months ago; recent travel to [place]. Plan Plan of Care D/c Zosyn Home on Augmentin for 7 days - Rx written F/u with primary D/w family and nursing NICHOLAS ELLIS MD Feb 10, 2019 11:25
[2019-02-10 11:32] VITALS: BP 109/73
[2019-02-10] MEDS ORDERED: NAPR-683 PO (11:43)
--- NOTE | 2019-02-10 12:00 | PDOC3 ---
Discharge Summary Visit Information Date of Admission: Feb 08, 2019 Date of Discharge: Feb 10, 2019 Admitting Diagnosis Comment: acute mastitis w/ cellulitis, bite to left breast still Brief Hospital Course Allergies Allergies Coded Allergies Type Severity Reaction Last Updated Verified cefprozil Allergy Intermediate Rash 02/08/19 Yes Vital Signs Vital Signs Date Time Temp Pulse Resp B/P (MAP) Pulse Ox O2 Delivery O2 Flow Rate FiO2 02/10/19 11:32 97.7 60 109/73 (85) 99 Room Air 97.7 02/10/19 06:22 14 Lab Results Laboratory Tests Test 02/09/19 05:00 02/09/19 05:05 02/10/19 08:55 White Blood Count 10.6 x10^3/uL (4.0-11.0) Red Blood Count 3.59 x10^6/uL (3.50-5.40) Hemoglobin 10.7 g/dL (12.0-15.5) Hematocrit 31.4 % (36.0-47.0) Mean Corpuscular Volume 87 fL (79-100) Mean Corpuscular Hemoglobin 30 pg (25-35) Mean Corpuscular Hemoglobin Concent 34 g/dL (31-37) Red Cell Distribution Width 14.0 % (11.5-14.5) Platelet Count 192 x10^3/uL (140-400) Neutrophils (%) (Auto) 76 % (31-73) Lymphocytes (%) (Auto) 16 % (24-48) Monocytes (%) (Auto) 6 % (0-9) Eosinophils (%) (Auto) 3 % (0-3) Basophils (%) (Auto) 0 % (0-3) Neutrophils # (Auto) 8.0 x10^3/uL (1.8-7.7) Lymphocytes # (Auto) 1.6 x10^3/uL (1.0-4.8) Monocytes # (Auto) 0.6 x10^3/uL (0.0-1.1) Eosinophils # (Auto) 0.3 x10^3/uL (0.0-0.7) Basophils # (Auto) 0.0 x10^3/uL (0.0-0.2) Sodium Level 144 mmol/L (136-145) Potassium Level 3.8 mmol/L (3.5-5.1) Chloride Level 110 mmol/L (98-107) Carbon Dioxide Level 25 mmol/L (21-32) Anion Gap 9 (6-14) Blood Urea Nitrogen 7 mg/dL (7-20) Creatinine 0.8 mg/dL (0.6-1.0) Estimated GFR (Cockcroft-Gault) 86.7 BUN/Creatinine Ratio 9 (6-20) Glucose Level 96 mg/dL (70-99) Calcium Level 8.2 mg/dL (8.5-10.1) Total Bilirubin 0.4 mg/dL (0.2-1.0) Aspartate Amino Transf (AST/SGOT) 26 U/L (15-37) Alanine Aminotransferase (ALT/SGPT) 35 U/L (14-59) Alkaline Phosphatase 46 U/L (46-116) Total Protein 6.1 g/dL (6.4-8.2) Albumin 3.0 g/dL (3.4-5.0) Albumin/Globulin Ratio 1.0 (1.0-1.7) Magnesium Level 2.3 mg/dL (1.8-2.4) Procalcitonin 2.40 ng/mL (0.00-0.10) Laboratory Tests Test 02/10/19 08:55 Procalcitonin 2.40 ng/mL (0.00-0.10) Brief Hospital Course Ms. Arnold is a 28 old post admitted for mastitis, co managed with ID, she breast feeds still, After few days IV abx better, home today PO augmentin x 7 days BID and I wrote some naproxen BID prn - dw ID and Rn Pt seen and examined, dc < 30 consults: ID procl none Discharge Information Condition at Discharge: Improved Disposition/Orders: D/C to Home Scheduled Info (No Known Medications Prior To Admisstion) Each, 1 EACH none for none, (Reported) Entered as Reported by: HELADIO HERNANDEZ on 02/09/19804 Last Action: New Order on 02/09/19804 by HELADIO HERNANDEZ Naproxen (Naprosyn) 500 Mg Tablet, 1 TAB PO BID for mastitis pain, #14 Ref 1 Prescribed by: KIAN OCAMPO on 02/10/19 1143 KIAN OCAMPO MD Feb 10, 2019 12:00
--- NOTE | 2019-02-10 13:15 | NUR ---
home instructions gone over with pt and signed to f/u with primary care dr/ scripts for augmentin given along with naprosyn. no questions on care
== END 2019-02-10 13:53 | disposition home or self-care (01) | DRG 872 ==
LOC: 6 SOUTH 23:00 → 1 WEST ICU 02-08 14:48 → 3 NORTH 02-09 10:50
PROVIDERS: ADMIT Internal Medicine; ATTEND Internal Medicine
DX: A41.9 Sepsis, unspecified organism (principal); S21.052A Open bite of left breast, initial encounter; N61.0 Mastitis without abscess; W50.3XXA Accidental bite by another person, initial encounter; Y93.89 Activity, other specified; Y92.89 Other specified places as the place of occurrence of the external cause; Y99.8 Other external cause status; Z83.3 Family history of diabetes mellitus
CPT/HCPCS: 36415; 80053; 83605; 83735; 84145; 85007; 85025; 85379; 85384; 87040; 90471; 90686; J1956; J2405; J2543; J3475; J7030; J7040; G0378